=== PATIENT | male | born 1970 | race Caucasian/White ===

== ENCOUNTER 2018-11-06 19:38 | Emergency (ER) | payer OTHER ==
[~2018-11-06] VITALS: Ht 170.2 cm; Wt 77.1 kg
== END 2018-11-06 21:58 | disposition home or self-care (01) ==
LOC: ER 19:38
DX: S61.216A Laceration without foreign body of right little finger without damage to nail, initial encounter (principal); Z23 Encounter for immunization; F17.210 Nicotine dependence, cigarettes, uncomplicated; W26.8XXA Contact with other sharp object(s), not elsewhere classified, initial encounter
CPT/HCPCS: 73130; 90714

== ENCOUNTER 2019-02-24 22:55 | Emergency (ER) | payer OTHER ==
[~2019-02-24] VITALS: Ht 170.2 cm; Wt 75.8 kg
[2019-02-25] MEDS ORDERED: CEPH500 PO (00:02)
== END 2019-02-25 00:04 | disposition home or self-care (01) ==
LOC: ER 22:55
DX: S81.811A Laceration without foreign body, right lower leg, initial encounter (principal); F17.210 Nicotine dependence, cigarettes, uncomplicated; X58.XXXA Exposure to other specified factors, initial encounter
CPT/HCPCS: 12002; 99282-25

== ENCOUNTER 2022-04-19 22:14 | Emergency (ER) | payer OTHER ==
[~2022-04-19] VITALS: Ht 177.8 cm; Wt 81.7 kg
[~2022-04-19 22:14] MED LIST: CEPH500 PO
[2022-04-19] MEDS ORDERED: METOPROLOL TART25 MG PO (22:26)
[2022-04-19] MEDS ORDERED: Flecainide Acet50 MG PO (22:26)
== END 2022-04-19 23:47 | disposition home or self-care (01) ==
LOC: ER 22:14
DX: S51.012A Laceration without foreign body of left elbow, initial encounter (principal); F17.200 Nicotine dependence, unspecified, uncomplicated; W27.8XXA Contact with other nonpowered hand tool, initial encounter
CPT/HCPCS: 12001; 90471; 99283-25

== ENCOUNTER 2022-04-21 18:19 | Emergency (ER) | payer OTHER ==
[~2022-04-21] VITALS: Ht 170.2 cm; Wt 83.9 kg
[~2022-04-21 18:19] MED LIST changes: +Flecainide Acet50 MG PO; +METOPROLOL TART25 MG PO
[2022-04-21] MEDS ORDERED: MONDOXYNE NL100 MG PO (18:44)
== END 2022-04-21 20:00 | disposition home or self-care (01) ==
LOC: ER 18:19
DX: L03.114 Cellulitis of left upper limb (principal); Z79.899 Other long term (current) drug therapy
CPT/HCPCS: A9270